=== PATIENT | female | born 1990 | race Caucasian/White ===

== ENCOUNTER 2021-04-02 00:24 | Emergency (ER) | payer OTHER ==
[2021-04-02 01:14] LABS: BASOPHIL 0.6 % (0-2); EOSINOPHIL 3.3 % (0-5); HGB 14.5 g/dl (12.5-16.0); LYMPHOCYTE 42.9 % (15-48); MCH 29.7 pg (25.0-31.0); MCHC 33.7 g/dL (32.0-36.0); MCV 87.9 fL (78.0-100.0); MONOCYTE 7.5 % (0-12); MPV 11.1 fL (6.0-9.5); NEUTROPHIL 45.6 % (41-80); NRBC 0; PLT 229 K/uL (150-400); RBC 4.89 M/uL (4.20-5.40); RDW 12.8 % (11.5-14.0); WBC 8.1 K/uL (4.0-10.5)
[2021-04-02 01:43] LABS: ALBUMIN 3.8 g/dL (3.4-5.0); ALKALINE PHOSHATASE 79 U/L (46-116); ALT 24 U/L (14-59); AST 13 U/L (15-37); BILIRUBIN - TOTAL 0.2 mg/dL (0.2-1.0); BUN 11 mg/dL (7-18); BUN/CREAT RATIO (CALC) 18.6 RATIO; CHLORIDE 105 mmol/L (98-107); CO2 (BICARBONATE) 23 mmol/L (21-32); CPK 43 U/L (26-192); CREATININE 0.59 mg/dL (0.51-0.95); GLOBULIN (CALCULATION) 3.4 g/dL; GLUCOSE 116 mg/dL (74-106); LIPASE 166 U/L (73-393); POTASSIUM 3.3 mmol/L (3.5-5.1); TOTAL PROTEIN 7.2 g/dL (6.4-8.2)
[2021-04-02 01:44] LABS: C-REACTIVE PROTEIN < 0.20 mg/dL (<=0.90)
[2021-04-02] MEDS ORDERED: ONDANSETRON ODT4 MG SL (05:25)
== END 2021-04-02 05:53 | disposition home or self-care (01) ==
LOC: FER 00:24
PROVIDERS: Emergency Medicine Emergency Medical Services
DX: R07.89 Other chest pain (principal); R09.89 Other specified symptoms and signs involving the circulatory and respiratory systems; E87.6 Hypokalemia; R51.9 Headache, unspecified; R06.02 Shortness of breath
CPT/HCPCS: 36415; 70450; 71045; 80053; 82550; 83605; 83690; 84439; 84443; 84484; 85025; 85379; 86140; 93005; J1885; J2060; J2405; J7120